=== PATIENT | male | born 1975 | race Two or more races ===

== ENCOUNTER 2023-11-24 18:39 | Emergency (ER) | payer OTHER ==
[~2023-11-24] VITALS: Ht 188 cm; Wt 77.1 kg
[2023-11-24 21:00] LABS: URINE EPITHELIAL CELLS 2.7 uL (0.0-38.8); URINE RBC 96.5 uL (0.0-20.8); URINE WBC 1157.1 uL (0.0-23.2)
[2023-11-24 21:10] LABS: PH,URINE 6.5 (5.0-8.0); URINE APPEARANCE Cloudy; URINE BILIRRUBIN Negative (NEGATIVE); URINE BLOOD Moderate; URINE COLOR Yellow; URINE GLUCOSE Negative (NEGATIVE); URINE LEUKOCYTE Moderate; URINE NITRATE Positive; URINE PROTEIN 30 (NEGATIVE)
[2023-11-24 21:14] LABS: URINE BACTERIA > 9821.2 uL (0.0-1933)
[2023-11-24 21:17] LABS: HEMATOCRIT 44.5 % (39.0-48.0); HEMOGLOBIN 15.1 g/dL (13-16.00); MEAN CELL VOLUME 93.1 fL (80.0-100.00); MEAN CORPUSCULAR HEMOGLOBIN 31.7 pg (27.00-32.0); MEAN CORPUSCULAR HGB CONC 34.1 g/dl (32.0-36.0); PLATELET COUNT 352 K/uL (150-450); RED BLOOD COUNT 4.78 M/uL (4.00-6.00); RED CELL DISTRIBUTION WIDTH 13.7 % (11.5-14.5)
[2023-11-24 21:23] LABS: CALCIUM 9.6 mg/dL (8.5-10.1); CREATININE SERUM 1.03 mg/dL (0.70-1.30); GFR 77.75; POTASSIUM 3.75 mEq/L (3.5-5.1)
[2023-11-25] MEDS ORDERED: LEVOFLOXACIN750 MG PO (10:14)
== END 2023-11-25 03:17 | disposition left against medical advice (07) ==
LOC: ER 18:39
PROVIDERS: General Practice
DX: N39.0 Urinary tract infection, site not specified (principal); N45.1 Epididymitis; N50.812 Left testicular pain; N43.3 Hydrocele, unspecified; N28.1 Cyst of kidney, acquired; D18.09 Hemangioma of other sites

== ENCOUNTER → 2023-11-25 | Emergency (ER) | payer OTHER ==
[~2023-11-25] VITALS: Ht 188 cm; Wt 76.7 kg
[~2023-11-25] MED LIST: LEVOFLOXACIN750 MG PO
[2023-11-25 08:39] LABS: URINE APPEARANCE Cloudy; URINE BILIRRUBIN Negative (NEGATIVE); URINE BLOOD Moderate; URINE COLOR Yellow; URINE GLUCOSE Negative (NEGATIVE); URINE LEUKOCYTE Moderate; URINE NITRATE Negative; URINE PROTEIN Trace (NEGATIVE)
[2023-11-25 08:41] LABS: HEMATOCRIT 41.1 % (39.0-48.0); MEAN CELL VOLUME 92.2 fL (80.0-100.00); MEAN CORPUSCULAR HEMOGLOBIN 31.5 pg (27.00-32.0); MEAN CORPUSCULAR HGB CONC 34.1 g/dl (32.0-36.0); PLATELET COUNT 353 K/uL (150-450); RED BLOOD COUNT 4.45 M/uL (4.00-6.00); RED CELL DISTRIBUTION WIDTH 13.9 % (11.5-14.5); URINE BACTERIA 93.2 uL (0.0-1933); URINE RBC 46.4 uL (0.0-20.8); URINE WBC 1033.5 uL (0.0-23.2)
[2023-11-25 09:50] LABS: CALCIUM 8.7 mg/dL (8.5-10.1); CREATININE SERUM 0.94 mg/dL (0.70-1.30); GFR 86.4; POTASSIUM 3.63 mEq/L (3.5-5.1)
== END | disposition home or self-care (01) ==
LOC: ER 07:36
PROVIDERS: General Practice
DX: N45.1 Epididymitis (principal); N50.812 Left testicular pain; N39.0 Urinary tract infection, site not specified